=== PATIENT | male | born 1985 | race Caucasian/White ===

== ENCOUNTER → 2024-06-24 13:51 | Outpatient (REF) | payer BC, SELFPAY | LOC: HWRAD 13:51 | PROVIDERS: ATTENDING PHYSICIAN Family Medicine | DX: M25.511 Pain in right shoulder (principal); M79.601 Pain in right arm; M25.531 Pain in right wrist; M25.521 Pain in right elbow | CPT/HCPCS: 73030; 73080; 73090; 73110 ==